=== PATIENT | female | born 1975 | race Caucasian/White ===

== ENCOUNTER 2021-10-11 13:15 | Emergency (ER) | payer SELFPAY ==
[~2021-10-11] VITALS: Ht 162 cm; Wt 60.0 kg
[2021-10-11 13:36] VITALS: BP 119/74
--- NOTE | 2021-10-11 14:21 | ED Lower Extremity ---
General Chief Complaint: Lower Extremity Stated Complaint: L ANKLE PAIN/SWELLING Nursing Triage Note: Pt tripped on the porch and has left ankle pain and swelling, pt is ambulatory. Source: patient Exam Limitations: no limitations History of Present Illness Date Seen by Provider: Oct 11, 2021 Time Seen by Provider: 14:17 Initial Comments This is a 46-year-old female that presents to the emergency room for evaluation of left ankle and lower leg pain. She states that she was going up the stairs on her patio and fell last night, striking her leg against a stair. She has had pain since then. Onset: yesterday Pain/Injury Location: left leg, left ankle Method of Injury: direct blow, fell Allergies and Home Medications Patient Home Medication List Home Medication List Reviewed: Yes Diclofenac Sodium (Diclofenac Sodium) 75 Mg Tablet., 75 MG PO BID Prescribed by: Francois Boyle on 10/11/21 9996 Review of Systems Constitutional: no symptoms reported EENTM: no symptoms reported Respiratory: no symptoms reported Cardiovascular: no symptoms reported Gastrointestinal: no symptoms reported Musculoskeletal: see HPI Skin: no symptoms reported Psychiatric/Neurological: No Symptoms Reported Past Fwewmex-Tiyuso-Midsij Hx Patient Social History Tobacco Use?: Yes Tobacco type used: Cigarettes Smoking Status: Current Everyday Smoker Use of E-Cig and/or Vaping dev: No Substance use?: No Alcohol Use?: No Pt feels they are or have been: No Past Medical History Last Menstrual Period: Sep 27, 2021 Physical Exam Vital Signs Vital Signs - First Documented 10/11/21 13:36 Temp 37.0 Pulse 79 Resp 18 B/P (MAP) 119/74 (89) Pulse Ox 98 O2 Delivery Room Air Capillary Refill : Less Than 3 Seconds Height, Weight, BMI Height: '" Weight: lbs. oz. 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 She does have some ecchymosis to the ankle but no evidence or suspicion of fracture, dislocation or neurovascular compromise. We discussed symptomatic therapy and the patient is in agreement with care plan. She was verbally upset about having to wait for x- rays and I did explain to her that the emergency room is very busy and we are moving as fast as possible. Impression Primary Impression: Contusion of left lower leg Additional Impression: Moderate left ankle sprain Disposition: HOME, SELF-CARE Condition: Stable Departure-Patient Inst. Decision time for Depature: 15:03 Referrals: [facility] [place]LOCAL PHYSICIAN (PCP) Primary Care Physician Patient Instructions: Acute Pain, Adult, Ankle Sprain ED, Contusion (DC) Add. Discharge Instructions: He did not have any evidence of fracture on your imaging. I recommend continuing to ice and elevate your leg and I have sent in a prescription for an anti-inflammatory to the pharmacy. Follow-up closely with your primary care doctor as needed. All discharge instructions reviewed with patient and/or family. Voiced understanding. Scripts Diclofenac Sodium (Diclofenac Sodium) 75 Mg Tablet. 75 MG PO BID for 7 Days, #14 TAB Prov: KJ BOYLE 10/11/21 KJ BOYLE Oct 11, 2021 14:21
--- NOTE | 2021-10-11 14:50 | Diagnostic Imaging Report ---
INDICATION: Ankle pain and swelling. FINDINGS: There is soft tissue swelling overlying the lateral malleolus. There is no cortical disruption of the distal fibula. There is no distal tibial fracture. There is no widening of the ankle mortise. The bones of the hindfoot appear unremarkable. IMPRESSION: Lateral ankle soft tissue swelling without findings of malalignment or fracture. Dictated by: Dictated on workstation # [id number]
--- NOTE | 2021-10-11 14:52 | Diagnostic Imaging Report ---
INDICATION: Injury. Pain. FINDINGS: The tibia and fibula demonstrate normal alignment without cortical disruption or findings of an acute fracture. Alignment of the knee and ankle is unremarkable. There is ankle soft tissue swelling. IMPRESSION: Ankle soft tissue swelling without findings of tibial or fibular fracture. Dictated by: Dictated on workstation # [id number]
[2021-10-11] MEDS ORDERED: DICL75TA2 PO (15:06)
== END 2021-10-11 15:10 | disposition home or self-care (01) ==
LOC: ER 13:17
DX: S93.402A Sprain of unspecified ligament of left ankle, initial encounter (principal); S80.12XA Contusion of left lower leg, initial encounter; F17.210 Nicotine dependence, cigarettes, uncomplicated; W10.8XXA Fall (on) (from) other stairs and steps, initial encounter; Y92.008 Other place in unspecified non-institutional (private) residence as the place of occurrence of the external cause
CPT/HCPCS: 73590; 73610